=== PATIENT | female | born 1960 | race Hispanic/Latino ===

== ENCOUNTER 2023-04-21 10:23 | Emergency (ER) | payer BC ==
[~2023-04-21] VITALS: Ht 157.5 cm; Wt 82.1 kg
[2023-04-21] MEDS ORDERED: GABA-529 PO (11:30)
[2023-04-21] MEDS ORDERED: VALA100031 PO (11:30)
[2023-04-21] MEDS ORDERED: MENT71OI TP (11:30)
[2023-04-21] MEDS: HYDROCODONE/ACETAMINOPHEN 5/325 MG TAB PO ONE (11:33)
[2023-04-21 11:50] VITALS: BP 159/74; PULSE 77; RESP 15; O2SAT 98
== END 2023-04-21 11:58 | disposition home or self-care (01) ==
LOC: EDH 10:23
DX: B02.9 Zoster without complications (principal); F41.9 Anxiety disorder, unspecified; E78.00 Pure hypercholesterolemia, unspecified; I10 Essential (primary) hypertension